=== PATIENT | male | born 1950 | race Caucasian/White ===

== ENCOUNTER 2022-01-15 17:37 | Emergency (ER) | payer MEDICARE, OTHER, SELFPAY ==
--- NOTE | ~2022-01-15 | XR_ITS ---
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 RESULT: Lines, tubes, and devices: None. Lungs and pleura: Senescent changes, otherwise clear. Cardiomediastinal silhouette: Stable. Other: No acute osseous or upper abdominal finding. IMPRESSION: No acute cardiopulmonary process. Reviewed, dictated and finalized at location K. ATOLOGY TEACHER
[2022-01-15 18:27] VITALS: BP 154/71; PULSE 96; RESP 20; TEMP 37.4; O2SAT 100
--- NOTE | 2022-01-15 18:48 | ED.URI ---
HPI - URI/Sore Throat General Chief Complaint: Upper Respiratory Infection Stated Complaint: + covid home test Time Seen by Provider: 01/15/22 18:48 Source: patient Mode of arrival: ambulatory Limitations: no limitations History of Present Illness HPI Narrative: 71-year-old male states that he began feeling run down, runny nose and sniffling 6 days ago. Started to feel worse 3 days ago with cough, chest congestion, fatigue, low-grade fever. Took a COVID test and was negative. Norco better yesterday and then feeling bad again today. Took another COVID test today that was positive. Patient states that he is here because he wants paxlovid. Denies chest pain and shortness of breath. Recently got back from a cruise. Is COVID vaccinated. All systems reviewed and negative except as noted above. Related Data Allergies Allergy/AdvReac Type Severity Reaction Status Date / Time No Known Allergies Allergy Verified 01/15/22 19:29 Review of Systems Review of Systems: CONSTITUTIONAL: reports fever, chills, or sweats. reports fatigue. EYES: Denies visual changes, redness, or discharge. ENT: reports rhinorrhea, congestion. Reports sore throat, or otalgia. CARDIOVASCULAR: Denies chest pain, palpitations, or edema. RESPIRATORY: reports cough. Denies dyspnea. GASTROINTESTINAL: Denies abdominal pain, nausea, vomiting, or diarrhea. GENITOURINARY: Denies dysuria or hematuria. SKIN: Denies rash or itching. MUSCULOSKELETAL: Denies back pain, joint pain, or myalgia. NEUROLOGIC: Denies headache, numbness, or weakness. PSYCHIATRIC: Denies anxiety or depression. All other systems reviewed are negative, except as documented in HPI. PMFSH Comments At time of signature, agree with nursing past medical, surgical, social and family history. There is no relevant family history pertinent to the presenting complaint. Exam Narrative: GENERAL: This is a well-nourished, well-developed patient, in no apparent distress. HEAD: normocephalic, atraumatic. EYES: PERRL. Sclera clear/white. Vision is grossly intact. EARS: External ears normal, auditory canals clear and without drainage, TMs normal without perforation. Hearing grossly intact. NOSE: External nose normal with redness drainage or he mild congestion. THROAT: Mucous membranes moist, posterior pharynx clear. NECK: Neck supple, non-tender without lymphadenopathy, masses or thyromegaly. CARDIOVASCULAR: Regular rate and rhythm without murmurs, gallops, or rubs. RESPIRATORY: Decreased lung sounds throughout all lung h[place]. No wheezes, rales, or rhonchi. SKIN: warm, Dry, intact with no suspicious lesions or rash, good texture and turgor. NEURO: awake, alert, and oriented to person, place and time. There were no obvious focal neurologic abnormalities. EXTREMITIES: No joint tenderness, effusion, or edema noted. Course Course Level of Care: Express Care Visit Vital Signs Vital signs: Vital Signs Temperature 37.4 C 01/15/22 18:27 Pulse Rate 96 01/15/22 18:27 Respiratory Rate 20 01/15/22 18:27 Blood Pressure 154/71 H 01/15/22 18:27 Pulse Oximetry 100 01/15/22 18:27 Oxygen Delivery Room Air 01/15/22 18:27 Temperature 37.4 C 01/15/22 18:27 Pulse Rate 96 01/15/22 18:27 Respiratory Rate 20 01/15/22 18:27 Blood Pressure 154/71 H 01/15/22 18:27 Pulse Oximetry 100 01/15/22 18:27 Oxygen Delivery Room Air 01/15/22 18:27 Reviewed MDM - URI/Sore Throat MDM Narrative Medical decision making narrative: Patient is aware of diagnosis, understands and agrees to treatment plan. Anticipatory guidance given. Patient agrees to follow-up as directed and is aware of reasons to seek care at the emergency department. Portions of this record may have been created with voice recognition software Discussed x-ray results with patient. Negative for pneumonia. Will prescribed Paxlovid. Pt stating he is on day 3 of symptoms but base off when symptoms started he i
== END 2022-01-15 19:28 | disposition home or self-care (01) ==
PROVIDERS: Emergency Provider Nurse Practitioner Family
DX: U07.1 COVID-19 (principal)
CPT/HCPCS: 71046; 99213; G0463

== ENCOUNTER 2022-03-12 08:35 | Outpatient (CLI) | payer MEDICARE, OTHER, SELFPAY ==
--- NOTE | ~2022-03-12 | US_ITS ---
Limited Abdominal Sonogram: Real-time sonographic imaging of the right upper quadrant was performed. Clinical History: Abdominal pain Findings: The liver appears echogenic, with no evidence of solid mass lesion or bile duct dilatation . Simple right hepatic lobe cyst measures 1.3 cm in diameter. Main portal vein is prominent at 1.6 cm in diameter, but demonstrates normal direction of flow. The gallbladder is well distended, and conta ins small gallstones. No gallbladder wall thickening. The common bile duct measures 4 mm. The visual ized pancreas, aorta, and IVC are unremarkable. Impression: Diffuse fatty infiltration of liver. Prominent main portal vein with normal direction of flow. Cholelithiasis. Reviewed, dictated and finalized at location . [employer] [address] Impression: Diffuse fatty infiltration of liver. Prominent main portal vein with normal direction of flow. Cholelithiasis.
== END 2022-03-12 08:36 | disposition home or self-care (01) ==
DX: R10.11 Right upper quadrant pain (principal); K76.0 Fatty (change of) liver, not elsewhere classified; K80.20 Calculus of gallbladder without cholecystitis without obstruction
CPT/HCPCS: 76705